=== PATIENT | male | born 1935 | race Caucasian/White ===

== ENCOUNTER → 2021-05-16 | Day surgery (SDC) | payer OTHER ==
[~2021-05-16] MED LIST: ACET325T21 PO; ALBU2.5V14 NEB; AMIO200T54 PO; APIX2.5T PO; ASCO500C PO; ASPI-630 PO; ATORVASTATIN CA80 MG PO; BISO5TAB8 PO; BUDE10.2 IH; BUPIVACAINE MPF 0.25% 30 ML VIAL. ONE; CHOL10004 PO; FOSI1TAB PO; SPIR25TA5 PO; TERA5CAP3 PO; TIOT18CA IH; methylPREDNISolone ACETATE 40 MG/ML VIAL. ONE
[2021-05-16 11:33] VITALS: BP 171/79
== END | disposition home or self-care (01) ==
LOC: SURG 10:12
PROVIDERS: ATTEND Anesthesiology
DX: M79.18 Myalgia, other site (principal); Z79.899 Other long term (current) drug therapy; Z79.82 Long term (current) use of aspirin
CPT/HCPCS: 20553; A4209; A4657; A4930; J1030; J3490

== ENCOUNTER → 2021-06-13 | Day surgery (SDC) | payer OTHER ==
[~2021-06-13] MED LIST changes: -BUPIVACAINE MPF 0.25% 30 ML VIAL. ONE; -methylPREDNISolone ACETATE 40 MG/ML VIAL. ONE
[2021-06-13 10:11] VITALS: BP 144/75
== END | disposition home or self-care (01) ==
LOC: SURG 10:04
PROVIDERS: ATTEND Anesthesiology
DX: M54.2 Cervicalgia (principal); I25.10 Atherosclerotic heart disease of native coronary artery without angina pectoris; J44.9 Chronic obstructive pulmonary disease, unspecified; M19.90 Unspecified osteoarthritis, unspecified site; I50.9 Heart failure, unspecified; I48.0 Paroxysmal atrial fibrillation; Z85.51 Personal history of malignant neoplasm of bladder; Z90.49 Acquired absence of other specified parts of digestive tract; Z79.899 Other long term (current) drug therapy; Z79.82 Long term (current) use of aspirin
CPT/HCPCS: 99214; G0463

== ENCOUNTER → 2021-06-13 | Outpatient (CLI) | payer OTHER, MEDICARE ==
[2021-06-13 10:11] VITALS: BP 144/75
[2021-06-13 12:08] LABS: ALT (SGPT) 17 U/L (16-63); AST (SGOT) 14 U/L (15-37)
--- NOTE | 2021-06-13 16:37 | RAD ---
XR CHEST 2V History: A. Fib. Shortness of breath. Comparison: None. Technique: PA and lateral chest radiographs. Findings: Left chest dual-chamber cardiac pacemaker-defibrillator. Normal heart size. Calcification of the aort ic arch. The lungs are mildly hyperexpanded. No airspace consolidation, pleural effusion or pneumothorax. The pulmonary vasculature is within normal limits. Osseous structures and soft tissues are unremarkable. Impression: 1. No acute cardiopulmonary process. Electronically signed by: Rafy Dacosta MD (06/13/2021 4:34 PM) [id number]
[2021-06-14 19:22] LABS: FREE T4 1.19 ng/dL (0.76-1.46); THYROID STIM HORMONE (TSH) 2.151 uIU/mL (0.358-3.740)
== END ==
LOC: RAD 11:04
PROVIDERS: ATTEND Internal Medicine Cardiovascular Disease
DX: R91.8 Other nonspecific abnormal finding of lung field (principal); R06.02 Shortness of breath; I48.0 Paroxysmal atrial fibrillation; Z51.81 Encounter for therapeutic drug level monitoring; Z79.899 Other long term (current) drug therapy
CPT/HCPCS: 36415; 71046; 84439; 84443; 84450; 84460

== ENCOUNTER → 2021-06-26 | Day surgery (SDC) | payer OTHER, MEDICARE ==
[~2021-06-26] MED LIST changes: +0.9 % SODIUM CHLORIDE 10 ML VIAL. ONE; +DEXAMETHASONE SOD PHOS 10 MG/ML VIAL. ONE; +IOHEXOL 300 MG/ML 50 ML VIAL. ONE; +LIDOCAINE 1% PF 30 ML VIAL. ONE
[2021-06-26 13:07] VITALS: BP 148/70
== END | disposition home or self-care (01) ==
LOC: SURG 12:20
PROVIDERS: ATTEND Anesthesiology
DX: M54.12 Radiculopathy, cervical region (principal); J44.9 Chronic obstructive pulmonary disease, unspecified; I11.0 Hypertensive heart disease with heart failure; I50.9 Heart failure, unspecified; M79.18 Myalgia, other site; I25.10 Atherosclerotic heart disease of native coronary artery without angina pectoris; M19.90 Unspecified osteoarthritis, unspecified site; Z85.51 Personal history of malignant neoplasm of bladder; Z90.49 Acquired absence of other specified parts of digestive tract; Z98.890 Other specified postprocedural states; Z79.899 Other long term (current) drug therapy
CPT/HCPCS: 62321; A4209; A4657; A4930; J1100; Q9967

== ENCOUNTER → 2021-07-18 | Day surgery (SDC) | payer MEDICARE, OTHER ==
[~2021-07-18] MED LIST changes: -0.9 % SODIUM CHLORIDE 10 ML VIAL. ONE; -DEXAMETHASONE SOD PHOS 10 MG/ML VIAL. ONE; -IOHEXOL 300 MG/ML 50 ML VIAL. ONE; -LIDOCAINE 1% PF 30 ML VIAL. ONE
[2021-07-18 09:42] VITALS: BP 164/77
== END | disposition home or self-care (01) ==
LOC: SURG 09:35
PROVIDERS: ATTEND Anesthesiology
DX: M54.2 Cervicalgia (principal); J44.9 Chronic obstructive pulmonary disease, unspecified; I11.0 Hypertensive heart disease with heart failure; I25.10 Atherosclerotic heart disease of native coronary artery without angina pectoris; I50.9 Heart failure, unspecified; M19.90 Unspecified osteoarthritis, unspecified site; M47.812 Spondylosis without myelopathy or radiculopathy, cervical region; I48.0 Paroxysmal atrial fibrillation; M79.18 Myalgia, other site; Z85.51 Personal history of malignant neoplasm of bladder; Z79.899 Other long term (current) drug therapy; Z98.890 Other specified postprocedural states; Z90.49 Acquired absence of other specified parts of digestive tract
CPT/HCPCS: 99214; G0463